=== PATIENT | female | born 1975 | race Two or more races ===

== ENCOUNTER 2020-10-29 14:00 | Emergency (ER) | payer OTHER ==
[~2020-10-29] VITALS: Ht 160 cm; Wt 63.5 kg
[~2020-10-29 14:00] MED LIST: DOXYCYCLINE HY100 MG PO; TYLENOL-CODEINE1 TAB PO
[2020-10-29] MEDS ORDERED: MILLIPRED5 MG (14:23)
[2020-10-29] MEDS ORDERED: AMRIX30 MG PO (19:33)
== END 2020-10-29 19:40 | disposition home or self-care (01) ==
LOC: ER 14:00
DX: M79.18 Myalgia, other site (principal)

== ENCOUNTER 2022-06-09 10:17 | Emergency (ER) | payer OTHER ==
[~2022-06-09] VITALS: Ht 157.5 cm; Wt 59.9 kg
[~2022-06-09 10:17] MED LIST changes: +AMRIX30 MG PO; +MILLIPRED5 MG
[2022-06-09] MEDS ORDERED: CELEBREX200MG PO (12:31)
[2022-06-09] MEDS ORDERED: METAXALONE400 MG PO (12:31)
== END 2022-06-09 12:39 | disposition home or self-care (01) ==
LOC: ER 10:17
DX: M54.59 Other low back pain (principal); M62.838 Other muscle spasm

== ENCOUNTER 2023-12-06 09:43 | Emergency (ER) | payer OTHER ==
[~2023-12-06] VITALS: Ht 160 cm; Wt 63.5 kg
[~2023-12-06 09:43] MED LIST changes: +CELEBREX200MG PO; +METAXALONE400 MG PO
[2023-12-06] MEDS ORDERED: PREDNISONE 5MG (10:01)
[2023-12-06] MEDS ORDERED: KETOROLAC TROMETHAMINE 30 MG VIAL IM STA (10:22)
[2023-12-06] MEDS ORDERED: ORPHENADRINE CITRATE 30 MG/ML AMPUL IM STA (10:22)
== END 2023-12-06 11:13 | disposition home or self-care (01) ==
LOC: ER 09:44
DX: R07.81 Pleurodynia (principal)
CPT/HCPCS: 71110; 96372; 99283; J1885; J2360

== ENCOUNTER 2024-09-25 02:35 | Emergency (ER) | payer OTHER ==
[~2024-09-25] VITALS: Ht 157.5 cm; Wt 63.5 kg
[~2024-09-25 02:35] MED LIST changes: +PREDNISONE 5MG
[2024-09-25] MEDS ORDERED: CEFTRIAXONE SODIUM 1,000 MG VIAL IM STA (05:54)
[2024-09-25] MEDS ORDERED: KETOROLAC TROMETHAMINE 60 MG VIAL IM STA (05:54)
[2024-09-25] MEDS ORDERED: KETO10TA2 PO (06:08)
[2024-09-25] MEDS ORDERED: CLEOCIN HCL300 MG PO (06:08)
== END 2024-09-25 06:25 ==
LOC: ER 02:40
DX: K04.7 Periapical abscess without sinus (principal)